=== PATIENT | female | born 1980 | race Caucasian/White ===

== ENCOUNTER → 2017-01-30 | Outpatient (CLI) | payer BC ==
[2015-12-10 09:36] VITALS: BP 160/88
[~2017-01-30] MED LIST: BUPR1PAT2 TD; CITA20TA9 PO; CYCL10TA2 PO; ESTR1TAB17 PO; HYDR-2762 PO; HYDR1TAB12 PO; NORE1TAB PO; ONDA4TAB7 PO; PROG100C7 PO; TRAZ150T55 PO; TRAZ50TA15 PO; VENL37.56 PO
--- NOTE | 2017-01-30 16:28 | KCIC ---
PROCEDURE Three-view lumbar spine HISTORY Right foot drop. Numbness in the foot in [place] for 2 weeks. Incontinence for 1 week. Recent falls. COMPARISON None FINDINGS Mild marginal spurring, particularly at the lumbosacral junction. There is no evidence a compression fracture or aggressive bone destruction. Alignment appears maintained. No advanced loss of disc space height Surgical clips in the right upper quadrant. IMPRESSION Mild lower lumbar spondylosis. No evidence of acute fracture or subluxation. Electronically signed by: Kieran Fonseca MD (Jan 30, 2017 16:26:27)
== END | disposition home or self-care (01) ==
LOC: KCIC 10:45
PROVIDERS: ATTEND Family Medicine
DX: M47.896 Other spondylosis, lumbar region (principal); R20.0 Anesthesia of skin
CPT/HCPCS: 72100

== ENCOUNTER 2018-01-11 12:42 | Inpatient (IN) | payer BC ==
[2018-01-11 13:07] LABS: ADD MAN DIFF? NO
[2018-01-11 13:12] LABS: BASO # 0.1 x10^3/uL (0.0-0.2); BASO % 1 % (0-3); EOS # 0.2 x10^3/uL (0.0-0.7); EOS % 4 % (0-3); HEMATOCRIT 38.3 % (36.0-47.0); HEMOGLOBIN 12.6 g/dL (12.0-15.5); LYMPH # 2.5 x10^3/uL (1.0-4.8); LYMPH % 40 % (24-48); MEAN CORPUSCULAR HEMOGLOBIN 29 pg (25-35); MEAN CORPUSCULAR HGB CONC 33 g/dL (31-37); MEAN CORPUSCULAR VOLUME 88 fL (79-100); MONO # 0.4 x10^3/uL (0.0-1.1); MONO % 7 % (0-9); NEUT % 49 % (31-73); PLATELET COUNT 246 x10^3/uL (140-400); RED BLOOD COUNT 4.35 x10^6/uL (3.50-5.40); RED CELL DISTRIBUTION WIDTH 12.6 % (11.5-14.5); WHITE BLOOD COUNT 6.2 x10^3/uL (4.0-11.0)
[2018-01-11 13:19] LABS: ANION GAP 11 (6-14); BLOOD UREA NITROGEN 19 mg/dL (7-20); BUN/CREATININE RATIO 27 (6-20); CALCIUM 8.8 mg/dL (8.5-10.1); CARBON DIOXIDE 25 mmol/L (21-32); CHLORIDE 103 mmol/L (98-107); CREATININE 0.7 mg/dL (0.6-1.0); GFR 94.7; GLUCOSE 141 mg/dL (70-99); POTASSIUM 3.8 mmol/L (3.5-5.1); SODIUM 139 mmol/L (136-145)
[2018-01-11] MEDS: FAMOTIDINE 20 MG/2 ML VIAL IVP (13:19)
[2018-01-11] MEDS: ONDANSETRON PF 4 MG/2 ML VIAL. IV (13:19)
[2018-01-11] MEDS: NITROGLYCERIN SUBLINGUAL 0.4 MG BOTTLE OF 25. SL ×3 (13:22→18:45)
[2018-01-11 13:25] LABS: ALBUMIN 3.3 g/dL (3.4-5.0); ALK PHOS 70 U/L (46-116); ALT (SGPT) 37 U/L (14-59); AST (SGOT) 21 U/L (15-37); LIPASE 102 U/L (73-393); TOTAL BILIRUBIN 0.3 mg/dL (0.2-1.0); TOTAL PROTEIN 6.6 g/dL (6.4-8.2)
[2018-01-11 13:30] LABS: TROPONINI < 0.017 ng/mL (0.000-0.055)
[2018-01-11 13:53] LABS: D-DIMER 0.32 ug/mlFEU (0.00-0.50)
[2018-01-11] MEDS ORDERED: ONDANSETRON PF 4 MG/2 ML VIAL. IV (14:45)
[2018-01-11] MEDS ORDERED: NITROGLYCERIN SUBLINGUAL 0.4 MG BOTTLE OF 25. SL (14:45)
[2018-01-11] MEDS: fentaNYL PF VIAL 100 MCG/2 ML VIAL IV ×2 (15:39→20:59)
[2018-01-11] MEDS ORDERED: BUTALB/APAP/CAFEIN 50/325/40MG TABLET. PO (17:15)
[2018-01-11] MEDS: BUTALB/APAP/CAFEIN 50/325/40MG TABLET. PO ×2 (17:18→18:44)
[2018-01-11] MEDS: FLU VACC QS2017-18 (36MOS+)/PF 0.5 ML SYRINGE. VAX IM (17:50)
[2018-01-11] MEDS: ENOXAPARIN 40 MG/0.4 ML SYRINGE. SQ (18:39)
[2018-01-11 20:16] LABS: TROPONINI < 0.017 ng/mL (0.000-0.055)
[2018-01-11 23:08] LABS: TROPONINI < 0.017 ng/mL (0.000-0.055)
[2018-01-12 04:40] LABS: ADD MAN DIFF? NO
[2018-01-12 05:35] LABS: BASO % 1 % (0-3); EOS # 0.2 x10^3/uL (0.0-0.7); EOS % 2 % (0-3); HEMATOCRIT 34.1 % (36.0-47.0); HEMOGLOBIN 11.4 g/dL (12.0-15.5); LYMPH # 2.7 x10^3/uL (1.0-4.8); LYMPH % 40 % (24-48); MEAN CORPUSCULAR HEMOGLOBIN 30 pg (25-35); MEAN CORPUSCULAR HGB CONC 34 g/dL (31-37); MEAN CORPUSCULAR VOLUME 88 fL (79-100); MONO # 0.6 x10^3/uL (0.0-1.1); MONO % 9 % (0-9); NEUT # 3.2 x10^3uL (1.8-7.7); NEUT % 48 % (31-73); PLATELET COUNT 234 x10^3/uL (140-400); RED BLOOD COUNT 3.87 x10^6/uL (3.50-5.40); WHITE BLOOD COUNT 6.7 x10^3/uL (4.0-11.0)
[2018-01-12 06:04] LABS: ANION GAP 8 (6-14); BLOOD UREA NITROGEN 18 mg/dL (7-20); CALCIUM 8.4 mg/dL (8.5-10.1); CARBON DIOXIDE 28 mmol/L (21-32); CHLORIDE 105 mmol/L (98-107); CREATININE 0.5 mg/dL (0.6-1.0); GFR 139.6; GLUCOSE 48 mg/dL (70-99); SODIUM 141 mmol/L (136-145)
[2018-01-12] MEDS: BUTALB/APAP/CAFEIN 50/325/40MG TABLET. PO (07:59)
[2018-01-12] MEDS ORDERED: BUTALB/APAP/CAFEIN 50/325/40MG TABLET. PO (10:15)
[2018-01-12] MEDS: REGADENOSON 0.4 MG/5 ML DISP.SYRIN. IV (11:37)
[2018-01-12] MEDS: SUMAtriptan SUCCINATE 100 MG TABLET PO (12:09)
== END 2018-01-12 16:24 | disposition home or self-care (01) | DRG 103 ==
LOC: ER 12:42 → 5 SOUTH 14:30
DX: G43.009 Migraine without aura, not intractable, without status migrainosus (principal); E66.01 Morbid (severe) obesity due to excess calories; F17.210 Nicotine dependence, cigarettes, uncomplicated; I25.119 Atherosclerotic heart disease of native coronary artery with unspecified angina pectoris; F41.9 Anxiety disorder, unspecified; G47.9 Sleep disorder, unspecified; G89.29 Other chronic pain; M21.371 Foot drop, right foot; K21.9 Gastro-esophageal reflux disease without esophagitis; M21.379 Foot drop, unspecified foot; Z82.49 Family history of ischemic heart disease and other diseases of the circulatory system; Z98.84 Bariatric surgery status; Z90.710 Acquired absence of both cervix and uterus; Z88.0 Allergy status to penicillin; Z88.8 Allergy status to other drugs, medicaments and biological substances; Z91.048 Other nonmedicinal substance allergy status; Z68.27 Body mass index [BMI] 27.0-27.9, adult
CPT/HCPCS: 36415; 71045; 78452; 80048; 80053; 83690; 84484; 85025; 85379; 90686; 93005; 93017; 93306; 96374; 96375; 96376; 99285; 99285-25; A9500; C8929; J1650; J2405; J2785; J3010; S0028

== ENCOUNTER → 2022-03-15 | Outpatient (CLI) | payer BC ==
[2018-01-12 15:30] VITALS: BP 93/46
[~2022-03-15] MED LIST changes: -BUPR1PAT2 TD; +BUPR1PAT8 TD; +CALC500T30 PO; +CYAN-25 PO; +CYCL10TA19 PO; -CYCL10TA2 PO; -HYDR-2762 PO; +HYDR-2765 PO; -HYDR1TAB12 PO; +HYDR1TAB13 PO; +MULT-445 PO; +OMEG1CAP6 PO; +PROG100C15 PO; -PROG100C7 PO; +TRAZ-118 PO; +TRAZ150T49 PO; -TRAZ150T55 PO; -TRAZ50TA15 PO
--- NOTE | 2022-03-15 17:18 | KCIC ---
Exam: Thoracic spine Date: 03/15/2022 2:17 PM CLINICAL HISTORY: Reason: Rt sided LBP for 1 week. No known injury COMPARISON: None available. FINDINGS: AP and lateral/swimmers views of the thoracic spine submitted. There is mild superimposed a rtifact at the cervicothoracic junction on the lateral view per technique. Exam shows preserved disc height throughout. Negative degenerative/proliferative changes. Negative compression fracture. Negative malalignment. Negative focal paraspinal line deviation/hematoma. IMPRESSION: No acute thoracic spine fracture or subluxation. EXAM: AP, lateral and lumbosacral spot views with bilateral oblique views of the lumbar spine DATE: 03/15/2022 2:17 PM INDICATION: Reason: Rt sided LBP for 1 week. No known injury COMPARISON: No Prior FINDINGS: For the purposes of this report there are 5 nonrib-bearing lumbar-type vertebral bodies. Vertebral marin dy heights are preserved. Mild T12-L1 disc height loss. Mild L5-S1 disc height loss. Straightening of the normal lumbar lordosis. No spondylolisthesis. No acute fracture. On the oblique views, mild face t degenerative change L4-5 and L5-S1 IMPRESSION: 1. Multilevel spondylosis as above 2. Negative acute fracture or subluxation. Electronically signed by: Shashi Reynolds MD (03/15/2022 5:15 PM) MARIA ESTHER
== END ==
LOC: KCIC 14:13
PROVIDERS: ATTEND Nurse Practitioner Family
DX: M47.815 Spondylosis without myelopathy or radiculopathy, thoracolumbar region (principal); M47.817 Spondylosis without myelopathy or radiculopathy, lumbosacral region; M51.27 Other intervertebral disc displacement, lumbosacral region; M51.25 Other intervertebral disc displacement, thoracolumbar region
CPT/HCPCS: 72072; 72110